=== PATIENT | female | born 1995 | race Hispanic/Latino ===

== ENCOUNTER 2021-06-13 19:38 | Observation (INO) | payer OTHER ==
[~2021-06-13] VITALS: Ht 162.6 cm; Wt 87.5 kg
[2021-06-13 20:54] LABS: APPEARANCE,URINE Clear (CLEAR); BILIRUBIN,URINE Negative (NEGATIVE); COLOR,URINE Yellow (YELLOW); GLUCOSE, URINE (UA) Negative (NEGATIVE); KETONES,URINE Negative (NEGATIVE); LEUKOCYTE ESTERASE ,URINE Moderate (NEGATIVE); NITRATE,URINE Negative (NEGATIVE); OCCULT BLOOD,URINE Negative (NEGATIVE); PROTEIN,URINE Negative (NEGATIVE); UROBILINOGEN,URINE 0.2 mg/dL (0.2-1.0)
[2021-06-13 21:00] LABS: BACTERIA,URINE Few /HPF (None Seen); MUCUS,URINE Few LPF (None Seen); SQUAMOUS EPITHELIAL CELL,UR Few /HPF (0-2)
[2021-06-13] MEDS ORDERED: CEFTRIAXONE 1G VIAL IVP ONE (21:30)
[2021-06-13 21:54] LABS: BASOPHILS % (AUTO) 0.2 % (0.0-5.0); EOSINOPHILS % (AUTO) 0.1 % (0.0-8.0); HEMATOCRIT 34.4 % (36-48); LYMPHOCYTES % (AUTO) 5.9 % (21.0-51.0); MEAN CORPUSCULAR HEMOGLOBIN 29.5 pg (27.0-33.0); MEAN CORPUSCULAR HGB CONC 33.7 g/dL (32.0-36.0); MEAN CORPUSCULAR VOLUME 87.5 fL (79-99); MONOCYTES % (AUTO) 5.2 % (3.0-13.0); NEUTROPHILS % (AUTO) 87.9 % (40.0-77.0); PLATELET COUNT (AUTO) 172 K/uL (130-400); RED BLOOD CELL COUNT(AUTO) 3.93 MIL/uL (4.00-5.50); RED CELL DISTRIBUTION WIDTH 13.1 % (11.0-15.5); WHITE BLOOD COUNT (AUTO) 11.4 K/uL (4.8-10.8)
[2021-06-13] MEDS: DEXTROSE 5%-LACTATED RINGERS 1,000 ML IV PRN (22:17)
[2021-06-13] MEDS ORDERED: CEFTRIAXONE 1G VIAL ONE (22:46)
[2021-06-14] MEDS: DEXTROSE 5%-LACTATED RINGERS 1,000 ML IV PRN (04:26)
[2021-06-14 07:57] VITALS: BP 102/58
[2021-06-14 09:10] VITALS: BP 102/57
[2021-06-14 11:54] VITALS: BP 110/58
[2021-06-14] MEDS: ACETAMINOPHEN 325 MG TAB PO PRN ×2 (13:08→19:43)
[2021-06-14 17:00] VITALS: BP 97/46
[2021-06-14 19:43] VITALS: BP 105/58
[2021-06-14] MEDS ORDERED: CEFTRIAXONE 1G VIAL IVP ONE (23:00)
[2021-06-14 23:19] VITALS: BP 99/49
[2021-06-15 03:30] VITALS: BP 98/53
[2021-06-15 07:18] VITALS: BP 95/56
[2021-06-15] MEDS ORDERED: PREN-154 PO (07:26)
[2021-06-15 11:08] VITALS: BP 106/71
== END 2021-06-15 12:40 | disposition home or self-care (01) ==
LOC: EDH 19:48 → LDH 20:02 → WSH 06-14 09:05
PROVIDERS: ADMIT Specialist; ATTEND Specialist
DX: O23.02 Infections of kidney in pregnancy, second trimester (principal); Z20.822 Contact with and (suspected) exposure to COVID-19; Z3A.27 27 weeks gestation of pregnancy; Z87.440 Personal history of urinary (tract) infections; Z87.442 Personal history of urinary calculi
CPT/HCPCS: 36415; 59025; 81001; 85025; 87088; 87635; 96361 ×4; 96374; 96376; G0378 ×40; J0696 ×2; 96360

== ENCOUNTER 2021-08-23 22:42 | Inpatient (IN) | payer OTHER ==
[~2021-08-23] VITALS: Ht 162.6 cm; Wt 90.7 kg
[~2021-08-23 22:42] MED LIST: PREN-154 PO
[2021-08-23 23:12] LABS: APPEARANCE,URINE Clear (CLEAR); BILIRUBIN,URINE Negative (NEGATIVE); COLOR,URINE Yellow (YELLOW); GLUCOSE, URINE (UA) Negative (NEGATIVE); KETONES,URINE 15 mg/dL (NEGATIVE); LEUKOCYTE ESTERASE ,URINE Negative (NEGATIVE); NITRATE,URINE Negative (NEGATIVE); OCCULT BLOOD,URINE Negative (NEGATIVE); PH,URINE 5.5 (5.0-8.0); PROTEIN,URINE Negative (NEGATIVE)
[2021-08-23 23:21] LABS: BACTERIA,URINE Few /HPF (None Seen); MUCUS,URINE Few LPF (None Seen); RBC,URINE 0-1 /HPF (0-1); WBC,URINE 0-1 /HPF (0-1)
[2021-08-24] MEDS ORDERED: LACTATED RINGERS 1000ML 1,000 ML IV SCH
[2021-08-24 01:36] LABS: HEMATOCRIT 34.7 % (36-48); MEAN CORPUSCULAR HEMOGLOBIN 30.3 pg (27.0-33.0); MEAN CORPUSCULAR HGB CONC 34.3 g/dL (32.0-36.0); MEAN CORPUSCULAR VOLUME 88.3 fL (79-99); RED BLOOD CELL COUNT(AUTO) 3.93 MIL/uL (4.00-5.50); RED CELL DISTRIBUTION WIDTH 13.2 % (11.0-15.5); WHITE BLOOD COUNT (AUTO) 12.2 K/uL (4.8-10.8)
[2021-08-24 01:50] VITALS: BP 113/56
[2021-08-24] MEDS ORDERED: EPHEDRINE SULFATE 50 MG/ML AMPULE IVP PRN (08:00)
[2021-08-24] MEDS ORDERED: PROMETHAZINE HCL 25 MG/ML 1ML AMPULE IM PRN (08:00)
[2021-08-24] MEDS ORDERED: ROPIVACAINE 0.2% 100ML VIAL 100 ML EP PRN (08:00)
[2021-08-24] MEDS ORDERED: NALOXONE HCL 0.4 MG/1 ML ML IV PRN (08:00)
[2021-08-24] MEDS ORDERED: OXYTOCIN-LR 20 UNITS/1000 ML 1,000 ML IV SCH (08:00)
[2021-08-24] MEDS ORDERED: LACTATED RINGERS 500 ML 500 ML IV PRN (08:00)
[2021-08-24] MEDS ORDERED: MEPERIDINE-PF 50 MG/ML SYG IVP PRN (08:00)
[2021-08-24] MEDS: LACTATED RINGERS 1000ML 1,000 ML IV PRN ×2 (08:52→11:39)
[2021-08-24] MEDS ORDERED: ACETAMINOPHEN 500 MG TABLET PO ONE (16:00)
[2021-08-24] MEDS ORDERED: METHYLERGONOVINE MALEATE 0.2 MG/1 ML ML ONE (16:55)
[2021-08-24] MEDS ORDERED: METHYLERGONOVINE MALEATE 0.2 MG/1 ML ML IM SCH (17:00)
[2021-08-24] MEDS ORDERED: ACETAMINOPHEN WITH CODEINE 1 TAB TAB PO PRN (17:30)
[2021-08-24] MEDS ORDERED: ACETAMINOPHEN 325 MG TAB PO PRN (17:30)
[2021-08-24] MEDS ORDERED: MEASLES/MUMPS/RUBELLA VACCINE, LIVE 0.5 ML/VIAL SQ PRN (17:30)
[2021-08-24] MEDS ORDERED: WITCH HAZEL 1 PAD TP PRN (17:30)
[2021-08-24] MEDS ORDERED: DIPH,PERTUSS(ACELL),TET VAC/PF 0.5 ML VIAL IM PRN (17:30)
[2021-08-24] MEDS ORDERED: BENZOCAINE/LANOLIN/ALOE VERA 60 ML AEROSOL TP PRN (17:30)
[2021-08-24] MEDS ORDERED: LANOLIN 30GM OINTMENT TP PRN (17:30)
[2021-08-24] MEDS ORDERED: DOCU-116 PO (18:44)
[2021-08-24] MEDS ORDERED: ACYC200C24 PO (18:44)
[2021-08-24] MEDS: IBUPROFEN 600 MG TABLET PO PRN (18:52)
[2021-08-24 19:55] VITALS: BP 127/75
[2021-08-24] MEDS: DOCUSATE SODIUM 100 MG CAP PO SCH (21:17)
[2021-08-24 23:43] VITALS: BP 111/60
[2021-08-25 04:20] VITALS: BP 101/59
[2021-08-25 05:45] LABS: MEAN CORPUSCULAR HEMOGLOBIN 29.1 pg (27.0-33.0); MEAN CORPUSCULAR HGB CONC 33.2 g/dL (32.0-36.0); MEAN CORPUSCULAR VOLUME 87.6 fL (79-99); RED BLOOD CELL COUNT(AUTO) 3.88 MIL/uL (4.00-5.50); WHITE BLOOD COUNT (AUTO) 13.2 K/uL (4.8-10.8)
[2021-08-25 07:20] VITALS: BP 101/54
[2021-08-25] MEDS: DOCUSATE SODIUM 100 MG CAP PO SCH (09:09)
[2021-08-25] MEDS: IBUPROFEN 600 MG TABLET PO PRN (09:10)
[2021-08-25 11:05] VITALS: BP 104/54
[2021-08-25 12:12] LABS: HEPATITIS Bs ANTIGEN SCREEN P Negative (Negative)
[2021-08-25 16:23] VITALS: BP 95/51
== END 2021-08-25 18:35 | disposition home or self-care (01) | DRG 806 ==
LOC: EDH 22:42 → OBSVTOIN 22:59 → LDH 22:59 → WSH 08-24 18:30
PROVIDERS: ADMIT Specialist; ATTEND Specialist
PROC: 10E0XZZ Delivery of Products of Conception, External Approach (ICD-10-PCS; principal; 2021-08-24)
PROC: 10907ZC Drainage of Amniotic Fluid, Therapeutic from Products of Conception, Via Natural or Artificial Opening (ICD-10-PCS; 2021-08-24)
PROC: 3E0234Z Introduction of Serum, Toxoid and Vaccine into Muscle, Percutaneous Approach (ICD-10-PCS; 2021-08-24)
PROC: 3E0R3BZ Introduction of Anesthetic Agent into Spinal Canal, Percutaneous Approach (ICD-10-PCS; 2021-08-24)
PROC: 00HU33Z Insertion of Infusion Device into Spinal Canal, Percutaneous Approach (ICD-10-PCS; 2021-08-24)
PROC: 3E0334Z Introduction of Serum, Toxoid and Vaccine into Peripheral Vein, Percutaneous Approach (ICD-10-PCS; 2021-08-25)
DX: O26.893 Other specified pregnancy related conditions, third trimester (principal); O98.52 Other viral diseases complicating childbirth; Z37.0 Single live birth; O69.1XX0 Labor and delivery complicated by cord around neck, with compression, not applicable or unspecified; Z67.11 Type A blood, Rh negative; Z23 Encounter for immunization; B00.9 Herpesviral infection, unspecified; Z3A.37 37 weeks gestation of pregnancy
CPT/HCPCS: 36415; 81001; 83033; 85027; 86592; 86850; 86900; 86901; 87340; 90715; 96360; 96361; A4314; G0378; J2210; J2590; J2791; J2795; J7120

== ENCOUNTER 2022-02-01 08:43 | Emergency (ER) | payer OTHER ==
[~2022-02-01] VITALS: Ht 162.6 cm; Wt 77.1 kg
[~2022-02-01 08:43] MED LIST changes: +ACYC200C24 PO; +DOCU-116 PO
[2022-02-01] MEDS ORDERED: 0.9%NACL 1000ML 1,000 ML IV ONE (09:13)
[2022-02-01 09:23] LABS: BASOPHILS % (AUTO) 0.5 % (0.0-5.0); EOSINOPHILS % (AUTO) 0.3 % (0.0-8.0); HEMATOCRIT 42.1 % (36-48); LYMPHOCYTES % (AUTO) 17.4 % (21.0-51.0); MEAN CORPUSCULAR HEMOGLOBIN 29.1 pg (27.0-33.0); MEAN CORPUSCULAR VOLUME 88.1 fL (79-99); MONOCYTES % (AUTO) 3.2 % (3.0-13.0); NEUTROPHILS % (AUTO) 78.3 % (40.0-77.0); PLATELET COUNT (AUTO) 307 K/uL (130-400); RED BLOOD CELL COUNT(AUTO) 4.78 MIL/uL (4.00-5.50); RED CELL DISTRIBUTION WIDTH 11.9 % (11.0-15.5); WHITE BLOOD COUNT (AUTO) 10.4 K/uL (4.8-10.8)
[2022-02-01 09:24] LABS: APPEARANCE,URINE Cloudy (CLEAR); BILIRUBIN,URINE Negative (NEGATIVE); COLOR,URINE Yellow (YELLOW); GLUCOSE, URINE (UA) Negative (NEGATIVE); KETONES,URINE Trace mg/dL (NEGATIVE); LEUKOCYTE ESTERASE ,URINE Small (NEGATIVE); NITRATE,URINE Negative (NEGATIVE); OCCULT BLOOD,URINE Large (NEGATIVE); PROTEIN,URINE POS 1+ mg/dL (NEGATIVE)
[2022-02-01] MEDS ORDERED: ONDANSETRON 4MG INJ IVP SCH (09:30)
[2022-02-01] MEDS ORDERED: 0.9%NACL 1000ML 1,095 ML IV SCH (09:30)
[2022-02-01] MEDS ORDERED: MORPHINE 2 MG SYG IVP SCH (09:30)
[2022-02-01 09:39] LABS: ALBUMIN 3.9 g/dL (3.5-5.0); BILIRUBIN,TOTAL 0.2 mg/dL (0.2-1.0); CREATININE 0.9 mg/dL (0.5-1.5); POTASSIUM 4.1 mmol/L (3.5-5.1); TOTAL PROTEIN, SERUM 7.9 g/dL (6.0-8.3)
[2022-02-01] MEDS ORDERED: TAMSULOSIN HCL 0.4 MG CAP.ER.24H ONE (09:50)
[2022-02-01] MEDS ORDERED: KETOROLAC 30MG VIAL (30MG/ML) IV SCH (10:00)
[2022-02-01] MEDS ORDERED: TAMSULOSIN HCL 0.4 MG CAP.ER.24H PO SCH (10:00)
[2022-02-01 10:01] LABS: HCG,QUAL RESULT NEGATIVE (NEGATIVE)
[2022-02-01 10:26] LABS: RBC,URINE >100 /HPF (0-1); WBC,URINE 0-1 /HPF (0-1)
[2022-02-01 10:27] LABS: BACTERIA,URINE Rare /HPF (None Seen); MUCUS,URINE Rare LPF (None Seen); SQUAMOUS EPITHELIAL CELL,UR Rare /HPF (0-2)
[2022-02-01] MEDS ORDERED: TAMS-1 PO (12:23)
[2022-02-01] MEDS ORDERED: NAPR-1023 PO (12:23)
[2022-02-01] MEDS ORDERED: CEPH500B PO (12:23)
[2022-02-01 12:40] VITALS: BP 128/70
== END 2022-02-01 12:42 | disposition home or self-care (01) ==
LOC: EDH 08:43
DX: N20.1 Calculus of ureter (principal); Z86.73 Personal history of transient ischemic attack (TIA), and cerebral infarction without residual deficits
CPT/HCPCS: 36415; 74176; 80053; 81001; 81025; 83690; 85025; 96361; 96374; 96375; 99284; J1885; J2405 ×2; J7030